=== PATIENT | female | born 1995 | race Caucasian/White ===

== ENCOUNTER 2023-02-24 12:54 | Emergency (ER) | payer MEDICAID ==
[~2023-02-24] VITALS: Ht 157.5 cm; Wt 74.8 kg
[2023-02-24 13:01] VITALS: BP 106/83
[2023-02-24 13:30] LABS: BILIRUBIN,URINE NEGATIVE (NEGATIVE); BLOOD, URINE 1+ (NEGATIVE); LEUKOCYTE ESTERASE ,URINE 2+ (NEGATIVE); NITRITE, URINE NEGATIVE (NEGATIVE); UGLUCOSE NEGATIVE (NEGATIVE)
[2023-02-24 14:25] LABS: APPEARANCE,URINE SLIGHTLY CLOUDY (CLEAR); COLOR,URINE YELLOW (YELLOW)
[2023-02-24 14:35] VITALS: BP 106/83
--- NOTE | 2023-02-24 14:35 | NUR ---
PT ELOPED AT THIS TIME.
[2023-02-24 14:47] LABS: RBC,URINE 0-5 /HPF (0-5)
== END 2023-02-24 14:35 | disposition left against medical advice (07) ==
LOC: MED 12:54
DX: N89.8 Other specified noninflammatory disorders of vagina (principal)
CPT/HCPCS: 81001; 81025; 87086; 99283